=== PATIENT | male | born 1955 | race Caucasian/White ===

== ENCOUNTER 2019-06-02 10:16 | Inpatient (IN) ==
[2019-06-02 11:20] LABS: BASO# 0.02 X1000 (0.0-0.2); BASO% 0.2 % (0.0-0.8); EOS# 0.22 X1000 (0.0-0.7); EOS% 1.9 % (0.0-10.0); HEMATOCRIT 36.8 % (42.0-52.0); HEMOGLOBIN 11.5 g/dL (14.0-18.0); IMM GRAN# 0.03 X1000 (0.0-0.04); IMM GRAN% 0.3 % (0.0-0.5); LYMPH# 0.81 X1000 (1.2-3.4); MCH 30.3 PG (27-31); MCHC 31.3 g/dL (33-37); MCV 97.1 FL (81-99); MONO% 8.7 % (1.7-9.3); MPV 10.3 FL (7.4-10.4); NEUT# 9.42 X1000 (1.4-6.5); NEUT% 81.9 % (42.2-75.2); PLT 253 X1000 (130-400); RBC 3.79 XMIL (4.7-6.1); RDW 14.3 % (11.5-14.5)
[2019-06-02 11:38] LABS: ALB/GLOB RATIO 1.6; ALBUMIN 4.6 g/dL (3.5-5.0); CALCIUM 9.5 mg/dL (8.8-10.2); MAGNESIUM 1.6 mg/dL (1.5-2.7); POTASSIUM 4.5 mmol/L (3.5-5.1); TOTAL BILIRUBIN 0.21 mg/dL (0.20-1.00); TOTAL PROTEIN 7.4 g/dL (6.3-8.3)
--- NOTE | 2019-06-02 11:53 | Diag Imaging Result Doc PS360 ---
CHEST-PORTABLE - 06/02/2019 INDICATION: spo2 COMPARISON: None FINDINGS: Lung volumes are critically low. There is central bronchial vascular crowding or central infiltrates/edema. Heart size is top normal. No pneumothorax or large pleural effusion. IMPRESSION: Nonspecific findings. Electronically signed by Hilton Vicente 06/02/2019 11:50 AM
--- NOTE | 2019-06-02 12:19 | EKG Report ---
Test Performed on : 06/02/2019 12:01:48 PM Test Reason : CP Blood Pressure : / mmHG Vent. Rate : 102 BPM Atrial Rate : 102 BPM P-R Int : 144 ms QRS Dur : 082 ms QT Int : 304 ms P-R-T Axes : 046 008 025 degrees QTc Int : 396 ms Sinus tachycardia. with occasional premature ventricular complexes. Nonspecific T wave abnormality Abnormal ECG No previous ECGs available Unconfirmed Result
[2019-06-02] MEDS ORDERED: LEVAQUIN 250 MG/D5W 250 MG/50 ML IVPB IV ONE (12:55)
[2019-06-02] MEDS ORDERED: ZOSYN 2.25 GM in NS 50 ML IV SCH (13:00)
--- NOTE | 2019-06-02 13:29 | PROVIDER DOCUMENTATION ---
This chart was entered by Kaylen Tabor Scribe, acting as scribe for Lizz Ramachandran MD. HPI-General Adult - General Chief Complaint: General Adult Stated Complaint: HYPOGYLCEMIA Time Seen by Provider: 06/02/19 10:28 Source: patient, family (), EMS Allergies/Adverse Reactions: Patient Allergies Allergy/AdvReac Type Severity Reaction Status Date / Time codeine AdvReac ABDOMINAL Verified 06/02/19 11:42 PAIN Home Medications: Home Medication List Medication Instructions Recorded Confirmed Last Taken Type Amlodipine Bes/Olmesartan Med 1 tab PO QHS 06/02/19 06/02/19 06/01/19 21:00 History [Amlodipine-Olmesartan 10-40 mg] 1 tab Atorvastatin Calcium 20 mg PO QHS 06/02/19 06/02/19 06/01/19 21:00 History 20 mg Baclofen [Lioresal] 10 mg PO TID PRN 06/02/19 06/02/19 Unknown History Clonazepam 1 mg PO BID 06/02/19 06/02/19 06/01/19 21:00 History 1 mg Finasteride [Proscar] 5 mg PO DAILY 06/02/19 06/02/19 Unknown History Furosemide [Lasix] 40 mg PO DAILY 06/02/19 06/02/19 06/01/19 08:00 History 40 mg Gabapentin 100 mg PO TID 06/02/19 06/02/19 06/01/19 21:00 History 100 mg Glimepiride 4 mg PO DAILY 06/02/19 06/02/19 06/01/19 08:00 History 4 mg Hydrochlorothiazide 25 mg PO DAILY 06/02/19 06/02/19 06/01/19 08:00 History 25 mg Levothyroxine Sodium 100 mcg PO DAILY 06/02/19 06/02/19 06/01/19 08:00 History 100 mcg Mesalamine E.r. [Pentasa] 250 mg PO BID 06/02/19 06/02/19 06/01/19 21:00 History 250 mg Morphine Sulfate [Morphine Sulfate 15 mg PO BID 06/02/19 06/02/19 06/01/19 21:00 History ER] 15 mg Omeprazole [Prilosec] 20 mg PO QHS 1206/02/19 06/01/19 21:00 History 20 mg Oxycodone HCl/Acetaminophen 1 tab PO Q6HR 06/02/19 06/02/19 06/01/19 21:00 History [Oxycodone-Acetaminophen 10-325] 1 tab Potassium Chloride 1 tab PO DAILY 06/02/19 06/02/19 06/01/19 08:00 History 1 tab Quetiapine Fumarate 200 mg PO QHS 06/02/19 06/02/19 06/01/19 21:00 History 200 mg Tamsulosin [Flomax] 0.4 mg PO BID 06/02/19 06/02/19 06/01/19 21:00 History 0.4 mg Trazodone [Desyrel] 150 mg PO QHS 06/02/19 06/02/19 06/01/19 21:00 History 150 mg Zolpidem Tartrate [Zolpidem 12.5 mg PO QHS 06/02/19 06/02/19 06/01/19 21:00 History Tartrate ER] 12.5 mg Vortioxetine Hydrobromide 10 mg PO DAILY 06/03/19 06/03/19 06/01/19 History [Trintellix] - History of Present Illness -Gen Adult Nature of Presenting Problems: 63yom presents to ED by EMS cc low blood sugar, chest pain and feeling of unwell. EMS reports when they arrived at pt home blood sugar was 59, pt gave PB&J and EMS gave oral glucose and blood sugar went up to 119. is at bedside and reports pt vomited 1x yesterday and has felt unwell since yesterday morning and hasn't taken any of last night meds or this morning meds. Pt reports he has resting tremors but today they are worse. Pt has hx of NIDDM and Crohn's. Pt is in no acute distress upon exam. Location of Pain/Injury: reports: chest, generalized Quality of Pain: reports: aching Severity: reports: mild Onset/Duration: reports: 24 hours ago Timing: reports: still present Context/Activities at Onset: reports: light activity Modifying Factors: improves with: nothing Associated Symptoms: reports: chest pain Review of Systems - Adult - REVIEW OF SYSTEMS - ADULT Constitutional: reports: see hola LIU. denies: chills, fever Eyes: reports: no symptoms reported Ears, Nose, Mouth & Throat: reports: no symptoms reported Cardiovascular: reports: see HPI, chest pain. denies: palpitations Respiratory: reports: see HPI. denies: cough, shortness of breath Gastrointestinal: reports: see HPI, vomiting (1x yesterday morning). denies: abdominal pain, constipation, diarrhea, nausea Genitourinary: reports: no symptoms reported Musculoskeletal: reports: no symptoms reported Integumentary: reports: no symptoms reported Neurological: reports: no symptoms reported Psychiatric: reports: no symptoms reported Endocrine: reports: see HPI, other (low blood sugar) Hematologic/Lymphatic: reports: no symptoms reported Allergic/Immunologic: reports: no symptoms reported All Other Systems: Reviewed and Negative Past History - Adult - PAST MEDICAL HISTORY-ADULT Review of Records: reports: Nursing Assessment Review, Medications Reviewed, Social history reviewed & non-contributory. Major Childhood Illnesses: reports: denies history Cardiovascular: reports: denies history Respiratory: reports: denies history Gastrointestinal: reports: denies history Obstetrical/Gynecological: reports: denies history Genitourinary: reports: denies history Musculoskeletal: reports: denies history Neurological: reports: denies history Endocrine/Immune: reports: denies history Other Conditions: reports: denies history - IMMUNIZATION STATUS Childhood Immunizations: See Nurse Assessment Flu Vaccine: See Nurse Assessment - FAMILY HISTORY Family History: reviewed, not pertinent - SOCIAL HISTORY Smoking: denies Substance Use: alcohol Alcohol Use Frequency: occasionally Number of drinks per typical drinking period:: 1 drink Physical Exam-General - PHYSICAL EXAM-ADULT Initial Vital Signs Reviewed: Yes - CONSTITUTIONAL General Appearance: alert. negative: anxious, combative - EYES Eyes: PERRL/EOMI, pink conjunctivae. negative: photophobia - HEAD, EARS, NOSE, MOUTH & THROAT HENMT: normocephalic/atraumatic, moist mucous membranes. negative: angioedema - RESPIRATORY Respiratory: chest non-tender, lungs clear, normal breath sounds. negative: stridor, wheezing - CARDIOVASCULAR Cardiovascular: normal peripheral pulses, regular rate, rhythm, no edema. negative: bradycardia, tachycardia - GASTROINTESTINAL (ABDOMEN) Abdominal Exam: normal bowel sounds, non tender, soft, distended, other (protrusion). negative: guarding - MUSCULOSKELETAL Extremity: normal inspection. negative: deformity - SKIN Integumentary: normal color. negative: diaphoresis, jaundice - NEUROLOGIC Neurologic: other (resting tremor) - PSYCHIATRIC Psych/Mental Status: normal mood/affect, oriented x 3. negative: anxious, disheveled Progress - PLAN OF CARE/RESULTS Progress/Plan/Lab Results: pt with vague and generalized symptoms. EMS on arrival with BG in 50s. Pt with hx of DM on oral meds. Labs showing acute renal failure which most likely contributed to his hypoglycemic episode. will admit for acute renal failure and further workup. Result Diagrams: 06/03/19 07:20 06/03/19 07:20 - REASSESSMENT Reassessment #1 Time Reassessed: 11:40 Status: unchanged (Labs reviewed. Showing acute renal failure with GFR of 15 and creat of 4. previous 1 month ago was creat of 1. will plan for admission.) - EKG 1 Time of EKG reading by physician:: 12:01 EKG Read and Signed by:: Rafael Murillo EKG Interpretation (*Must complete 3 of following elements*): Abnormal (Non specific T wave abnormality) Rate: 102 Rhythm: Sinus Tachy QRS: PVC's (occasional) - XRAY 1 XRAY Study: Chest Impression: See EMR Report (CHEST-PORTABLE - 06/02/2019 INDICATION: spo2 COMPARISON: None FINDINGS: Lung volumes are critically low. There is central bronchial vascular crowding or central infiltrates/edema. Heart size is top normal. No pneumothorax or large pleural effusion. IMPRESSION: Nonspecific findings. Electronically signed by Hilton Vicente 06/02/2019 11:50 AM 06/02/19 1150) - CONSULTS/PCP/HOSPITALIST Notification #1 *Consult/PCP/Hospitalist*: Dr. Tran Time Discussed: 12:40 Reason/Comments: was present in ED, evaluated pt, admitted. Departure - Departure Date of Disposition Decision: 06/02/19 Time of Disposition Decision: 13:28 DIAGNOSIS: Acute renal failure Disposition: ADMITTED INPATIENT 09 Certified Medical Emergency: Emergent Condition: Stable - Critical Care Note This patient required my direct & personal management of CC.: No Attestation - Physician/ VICENTA Attestation Patient care was provided by Advanced Practice Provider:: No The physician spent face to face time with patient:: Yes Advanced Practice Provider documentation review:: Supervising physician onsite and consulted in the evaluation and care of this patient. The physician did have a face to face encounter with the patient. This chart was documented by the indicated scribe, (Kaylen Tabor, Debbie) and accurately reflects the services I performed and decisions made by me, Lizz Ramachandran MD, as attested by the provider's signature.
[2019-06-02 13:47] LABS: URINE SOURCE CATH
[2019-06-02 14:03] LABS: BILIRUBIN URINE NEGATIVE (NEGATIVE); BLOOD URINE NEGATIVE (NEGATIVE); COLOR YELLOW; GLUCOSE URINE NEGATIVE (NEGATIVE); KETONE URINE NEGATIVE (NEGATIVE); LEUKOCYTES URINE NEGATIVE (NEGATIVE); NITRITE URINE NEGATIVE (NEGATIVE); PH URINE 5.5; PROTEIN URINE TRACE mg/dL (NEGATIVE); SP GRAVITY URINE 1.014; TURBIDITY URINE CLEAR (CLEAR); UROBILINOGEN URINE NORMAL (NORMAL)
[2019-06-02 14:07] LABS: UR EPITHELIAL CELLS <10 /HPF (<10); URINE BACTERIA NEGATIVE /HPF; URINE RBC <10 /HPF (<10); URINE WBC <10 /HPF (<10)
[2019-06-02] MEDS ORDERED: SODIUM CHLORIDE 0.9% INJ PRN (14:38)
[2019-06-02] MEDS ORDERED: LIORESAL PO PRN (14:38)
[2019-06-02] MEDS ORDERED: PHENERGAN IV PRN (14:38)
--- NOTE | 2019-06-02 14:43 | Diag Imaging Result Doc PS360 ---
CT ABDOMEN/PELVIS W/O CONTRAST - 06/02/2019 INDICATION: anuria and acute renal failure uti COMPARISON: None FINDINGS: The lung bases are clear and the heart size is normal. No radiodense renal stones. No hydronephrosis or hydroureter. There is a small left renal cyst measuring about 1 cm. Otherwise abdominal organs are all normal. There is moderate constipation. No bowel obstruction or inflammation. Normal appendix. Levine catheter in the urinary bladder. Urinary bladder, prostate, and rectum appear normal. There is fusion hardware in the lower lumbar spine. There are moderate degenerative changes of the spine. No acute or suspicious bony lesion. IMPRESSION: Constipation. No acute disease. This exam was performed using automated exposure control, adjustment of mA or kV according to patient size, and/or use of iterative reconstruction technique Electronically signed by Hilton Vicente 06/02/2019 2:41 PM
[2019-06-02 15:20] LABS: INR 1.06; PROTIME 13.9 Seconds (11.0-16.0)
[2019-06-02 15:21] LABS: PTT 29.5 Seconds (22.3-41.8)
[2019-06-02] MEDS: ZOSYN 2.25 GM in NS 50 ML IV SCH ×2 (15:48→20:37)
[2019-06-02] MEDS: PERCOCET-10 PO SCH ×2 (15:48→20:39)
[2019-06-02] MEDS: LOVENOX SUBQ SCH (15:49)
[2019-06-02] MEDS: PRILOSEC PO SCH (20:30)
[2019-06-02] MEDS: PENTASA PO SCH (20:30)
[2019-06-02] MEDS: NEURONTIN PO SCH (20:30)
[2019-06-02] MEDS: SEROQUEL PO SCH (20:38)
[2019-06-02] MEDS: LIPITOR PO SCH (20:38)
[2019-06-02] MEDS: FLOMAX PO SCH (20:38)
[2019-06-02] MEDS: KLONOPIN PO SCH (20:39)
[2019-06-02] MEDS: DESYREL PO SCH (20:40)
[2019-06-03] MEDS: ZOSYN 2.25 GM in NS 50 ML IV SCH ×4 (02:53→21:43)
[2019-06-03] MEDS: PERCOCET-10 PO SCH ×4 (02:58→21:43)
[2019-06-03] MEDS: SYNTHROID PO SCH (06:05)
[2019-06-03 07:49] LABS: HEMATOCRIT 34.4 % (42.0-52.0); HEMOGLOBIN 10.9 g/dL (14.0-18.0); MCH 31.5 PG (27-31); MCHC 31.7 g/dL (33-37); MCV 99.4 FL (81-99); MPV 10.1 FL (7.4-10.4); RBC 3.46 XMIL (4.7-6.1); RDW 14.4 % (11.5-14.5); WBC 6.58 X1000 (4.8-10.8)
[2019-06-03 08:35] LABS: CALCIUM 8.9 mg/dL (8.8-10.2); CREATININE 2.1 mg/dL (0.7-1.2); POTASSIUM 4.9 mmol/L (3.5-5.1)
[2019-06-03] MEDS ORDERED: NS 1,000 ML IV SCH (08:45)
[2019-06-03] MEDS ORDERED: PENTASA PO SCH (09:00)
[2019-06-03] MEDS: FLOMAX PO SCH ×2 (09:23→21:39)
[2019-06-03] MEDS: KLONOPIN PO SCH ×2 (09:23→21:43)
[2019-06-03] MEDS: PENTASA PO SCH ×2 (09:24→21:42)
[2019-06-03] MEDS: NEURONTIN PO SCH ×3 (09:24→16:38)
--- NOTE | 2019-06-03 10:32 | PROGRESS NOTE ---
DATE: 06/03/2019 SUBJECTIVE: Mr. Carson was admitted to [facility] with a metabolic encephalopathy. He is still sedated and drowsy, but seems more alert as compared to admission. He is oriented to name, place, and time. He continues with dysuria and increased urinary frequency. Urine cultures are negative to this point. Blood cultures are pending. Renal function is improving. His creatinine has dropped from 4.0 to 2.1. Blood pressures have been ranging from 101 to 113 whereas his diastolic blood pressures have been in the 30s and 40s. OBJECTIVE: Vital Signs: Temperature 97.7 degrees, pulse 66, respirations 18, and BP 101/31. CV: Regular rate and rhythm. Lungs: Clear. Abdomen: Soft. Mild suprapubic tenderness. No rebound or guarding. No hepatosplenomegaly. Extremities: Without edema. ASSESSMENT AND PLAN: 1. Metabolic encephalopathy. Clinically, he seems more alert and more like himself this morning. I suspect that the etiology is multifactorial. I suspect he probably has prostatitis with sepsis. We will continue broad-spectrum antibiotics including Levaquin and piperacillin. His white count has dropped from 11,000 to 6000. Hopefully, we can transition him to oral antibiotics soon. He is also uremic. His BUN has dropped from 60 to 40. 2. Acute renal failure. CT scan showed no evidence of hydronephrosis. We held the amlodipine, olmesartan, and hydrochlorothiazide because of his renal function. Renal function is improving. We will recheck a BMP in the morning and reassess his medications. 3. Persistent hypoglycemia. We will continue to hold glimepiride. We placed him on an 1800 calorie ADA diet, pattern sugars, and a Humulin R sliding scale. cc: Aurelia Tran MD
[2019-06-03] MEDS: HUMALOG SUBQ SCH ×3 (10:38→21:43)
--- NOTE | 2019-06-03 12:00 | Diag Imaging Result Doc PS360 ---
CHEST-PORTABLE - 06/03/2019 INDICATION: DYSPNEA COMPARISON: 06/02/2019 FINDINGS: The lungs are normally expanded and clear. Heart size and mediastinal contours are normal. No pneumothorax or pleural effusion. IMPRESSION: Negative exam. Electronically signed by Hilton Vicente 06/03/2019 11:58 AM
[2019-06-03] MEDS: LOVENOX SUBQ SCH (14:32)
--- NOTE | 2019-06-03 14:35 | HISTORY AND PHYSICAL ---
CHIEF COMPLAINT: Altered mental status. HISTORY OF PRESENT ILLNESS: Mr. Scooby Carson is a 63-year-old, gentleman who is well known to me. He has a history of multiple medical problems including essential hypertension, Chron's colitis, gastroesophageal reflux disease, mixed hyperlipidemia primary hypothyroidism, type 2 hwy-axynbsl-yjdaeepib diabetes mellitus and depression. He has chronic pain syndrome secondary to cervical stenosis and lumbar spinal stenosis. He is a patient at the pain clinic. Over the past 36 hours Mrs. Carson reports that Mr. Carson has been more confused and disoriented. He has been very lethargic and sleeping all the time. He has not had any obvious fever or chills. He has not had any unexplained cough pleuritic chest pain. Nausea vomiting or diarrhea. He reports that he has dysuria and increased urinary frequency. His family reports that he has not been voiding. He feels a persistent urge to urinate but will only dribble small amounts of urine at a time. Of note his creatinine on 05/27 of this year was 1.5. It had jumped to 4.[address] scan of the abdomen and pelvis demonstrated no evidence of hydronephrosis or renal stones. He has a long standing history of type 2 noninsulin dependent diabetes mellitus. Blood sugars have been very low. He has had nausea, diaphoresis and confusion which improved with eating. He has been taking Amaryl for his blood sugars. PAST MEDICAL HISTORY: As above. PAST SURGICAL HISTORY: Right rotator cuff repair, inguinal hernia repair, transurethral resection of the prostate, cervical fusion at C4-C5 and lumbar fusion at L4-L5. SOCIAL HISTORY: He does not smoke. He dips tobacco. He does drink alcohol. He uses marijuana. He is and lives with his spouse. FAMILY HISTORY: Both his mother and maternal grandmother had hypertension. MEDICATIONS: Atorvastatin 20 mg at bedtime, Lasix 40 mg daily, Seroquel 25 mg at night, glimepiride 4 mg b.i.d., trazodone 150 mg at bedtime p.r.n. insomnia, trintellix 10 mg daily, amlodipine/telmisartan 10/40 one daily, Flomax 0.4 mg daily, levothyroxine 100 mcg daily, morphine ER b.i.d., Omeprazole 20 mg daily, Pentasa 250 mg b.i.d., clonazepam 0.25 mg b.i.d. REVIEW OF SYSTEMS: He denies any recent weight gain or weight loss.HEENT: He wears glasses. CV: No chest pain, palpitations, or anginal equivalents. Pulmonary: No shortness of breath, PAROXYSMAL NOCTURNAL DYSPNEA, orthopnea. GI: No reflux, dysphagia, melena, hematochezia, change in bowel habits, or rectal bleeding. Endocrine: No polyuria, no polydipsia. No cold or heat intolerance. Skin: No easy bruisability. : He has nocturia and decreased urinary stream. He has had recurrent prostate infections. Neurologic: No migraines or seizures. Psychiatric: History of depression. Physical Examination: General: This is an acutely ill-appearing 63-year- old, gentleman in no apparent distress. Vital Signs: He is afebrile. Pulse 100, respiratory rate 22, BP 140/42. HEENT: HEENT fundi with arteriolar wall thickening. Pupils equal, round, reactive to light. Extraocular eye movements intact. Neck: Supple. No masses, JVD or bruits. CV: Tachycardic regular S1, S2. Lungs: Clear. Abdomen: Soft. Good bowel sounds. No hepatosplenomegaly. He has marked tenderness over the bladder. Extremities: Without edema. Skin: No palpable purpura. Neuro: He is sedated but arouses to verbal and painful stimuli. He is oriented to name. He moves all extremities grossly. ASSESSMENT AND PLAN: 1. Metabolic encephalopathy. The etiology of the encephalopathy is unclear. He would meet the initial criteria for systemic inflammatory response syndrome. I do not have an obvious source of infection. We will initiate the sepsis protocol. I will cautiously give him fluids and will begin broad-spectrum antibiotics including Levaquin and Zosyn dosed for his renal dysfunction pending urine and blood cultures. 2. Acute renal failure superimposed on chronic renal failure. He has baseline chronic renal insufficiency with a creatinine of 1.4 1.5. It was 4.[address] scan showed no evidence of hydronephrosis. I am going to hold his AIDE inhibitors. We will cautiously rehydrate him. I will recheck a BMP in the morning. 3. 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 He has been taking Amaryl. He has had persistently low sugars. They have had difficulty getting his sugars elevated. We will check his sugars routinely and hold his diabetic medicines. We will use insulin on a p.r.n. basis. PLAN: Given his comorbid conditions and clinical presentation, I believe that admission to the hospital is both reasonable and necessary. I anticipate that he will be in the hospital for at least 2 midnights and I will therefore place him in inpatient status. We will begin Lovenox 30 mg subcutaneously daily for DVT prophylaxis. cc: Aurelia Tran MD
[2019-06-03] MEDS ORDERED: CITRATE OF MAGNESIA PO ONE (15:13)
[2019-06-03] MEDS: TYLENOL PO PRN (17:44)
[2019-06-03] MEDS: LIPITOR PO SCH (21:42)
[2019-06-03] MEDS: SEROQUEL PO SCH (21:42)
[2019-06-03] MEDS: DESYREL PO SCH (21:42)
[2019-06-03] MEDS: PRILOSEC PO SCH (21:42)
[2019-06-04] MEDS: PERCOCET-10 PO SCH ×3 (02:18→14:35)
[2019-06-04] MEDS: ZOSYN 2.25 GM in NS 50 ML IV SCH (02:19)
[2019-06-04] MEDS: SYNTHROID PO SCH (06:20)
[2019-06-04] MEDS: HUMALOG SUBQ SCH ×2 (06:20→11:50)
[2019-06-04 07:24] VITALS: BP 132/57
[2019-06-04 08:16] LABS: AGAP 11; BUN 23 mg/dL (8-22); CALCIUM 8.6 mg/dL (8.8-10.2); CHLORIDE 99 mmol/L (98-107); COSMO 279; CREATININE 1.2 mg/dL (0.7-1.2); ESTIMATED GFR > 60; GLUCOSE 120 mg/dL (70-104); POTASSIUM 3.8 mmol/L (3.5-5.1); SODIUM 137 mmol/L (136-145); TCO2 27 mmol/L (25-35)
[2019-06-04] MEDS ORDERED: SEPTRA DS PO SCH (09:00)
[2019-06-04] MEDS: FLOMAX PO SCH (09:15)
[2019-06-04] MEDS: PENTASA PO SCH (09:15)
[2019-06-04] MEDS: KLONOPIN PO SCH (09:15)
[2019-06-04] MEDS: NEURONTIN PO SCH ×2 (09:15→14:35)
[2019-06-04] MEDS: TYLENOL PO PRN (10:34)
[2019-06-04] MEDS: LOVENOX SUBQ SCH (14:34)
--- NOTE | 2019-06-12 15:51 | DISCHARGE SUMMARY ---
ADMISSION DATE: 06/02/2019 DISCHARGE DATE: 06/04/2019 DISCHARGE DIAGNOSES: 1. Metabolic encephalopathy. 2. Acute prostatitis without hematuria. 3. Sepsis syndrome. 4. Benign prostatic hypertrophy with lower urinary tract symptoms. 5. Acute urinary retention. 6. Type 2 non-insulin dependent diabetes mellitus. 7. Mixed hyperlipidemia. 8. Primary hypothyroidism. 9. Chronic low back pain secondary to lumbar spinal stenosis with neurogenic claudication. 10. Hypoglycemia secondary to sulfonylurea poisoning. DISCHARGE INSTRUCTIONS: Return to clinic in 1 week to see me, Dr. Mitch Tran, in anticipation of a transition of care visit ACTIVITY: As tolerated. DIET: An 1800 calorie ADA diet. MEDICATIONS: Septra DS 1 p.o. b.i.d. for 10 days, Pentasa 250 mg b.i.d., Percocet 10 one q. 6 hours p.r.n. pain, Desyrel 150 mg at bedtime, Flomax 0.4 mg b.i.d., Tylenol 650 mg q. 6 hours as needed, atorvastatin 20 mg at bedtime, baclofen 10 mg t.i.d., clonazepam 1 mg b.i.d., gabapentin 100 mg t.i.d., glimepiride 4 mg daily, morphine ER 15 mg b.i.d., Prilosec 20 mg daily, KCl 20 mEq daily, Seroquel 200 mg at night, finasteride 5 mg daily, amlodipine/ olmesartan 10/40 daily, Lasix 40 mg daily, levothyroxine 100 mcg daily. DISCHARGE PHYSICAL EXAMINATION: General: This is a well-developed, well-nourished, 63-year-old gentleman in no apparent distress. Vital Signs: He is afebrile. Vital signs are stable. CV: Regular rate and rhythm. Lungs: Clear. Abdomen: Soft, nontender with active bowel sounds. No hepatosplenomegaly. No abdominal bruits. HOSPITAL COURSE: Mr. Scooby Carson was admitted to [facility] for evaluation of mental confusion and mental status changes. Over the past 36 hours, Ms. Carson reported that he had been more confused and disoriented. He was lethargic and sleeping all the time. He had a persistent urge to urinate, increased urinary frequency, and low back pain, as well as dysuria. He had not been able to eat or drink for several days. His creatinine had jumped from 1.5 to 4.0 on admission. Because of the tachypnea, left shift and tachycardia in the setting of a prostate infection, we felt that he had sepsis syndrome with end-organ damage. His creatinine had jumped from 1.5 to 4.0. The patient was rehydrated with D5 half normal saline, and we began broad- spectrum antibiotics including Levaquin and Zosyn dosed for his renal dysfunction. The sepsis protocol was initiated. Follow up blood and urine cultures were negative with rehydration and aggressive antibiotic therapy. There was significant improvement in his overall mental status. He was awake, easily arousable. He was alert and oriented to name, place, and time. He answered questions appropriately. Renal function improved dramatically. Creatinine dropped to 1.2 at the time of discharge. I suspect that he had sepsis related to underlying prostate infection, and we made arrangements for him to complete an additional 10-day course of Bactrim DS 1 p.o. b.i.d., and we will check a urine culture following completion of those antibiotics. He does have a longstanding history of BPH. He was not able to void on admission. We placed a Levine catheter. We initiated bladder training and stopped the catheter. He was unable to void and was having persistent elevated amounts of urinary retention. We replaced a Levine catheter. We continued his Proscar and increased the Flomax to 0.4 mg b.i.d. We made Arrangements for him to see Dr. Singleton as an outpatient. Having reached maximum hospital benefit, the patient was discharged in stable condition. cc: Aurelia Tran MD
== END 2019-06-04 16:12 | disposition home or self-care (01) | DRG 871 ==
LOC: SUPCPDRO → ED 10:16 → 3N 13:18
PROVIDERS: ADMIT Internal Medicine; ATTEND Internal Medicine